=== PATIENT | female | born 1965 | race Caucasian/White ===

== ENCOUNTER 2019-12-31 15:02 | Emergency (ER) | payer OTHER, SELFPAY ==
[2019-12-31] VITALS (8 sets, daily range): BP systolic 155–232; BP diastolic 72–107; PULSE 61–72; RESP 16; TEMP 36.6; O2SAT 97–99; BMI 39.9
--- NOTE | 2019-12-31 16:55 | ED.GENADULT ---
HPI - General Adult General Chief complaint: Hypertension Stated complaint: NUMBNESS OF THE FACE MIDDLE BACK PAIN HIGH BLOOD P Time Seen by Provider: 12/31/19 15:43 Source: patient Mode of arrival: Ambulatory History of Present Illness HPI narrative: 54-year-old woman with a history of hypertension presents to her primary care physician's office for new patient visit and complains of a number of days of intrascapular pain some word-finding difficulties yesterday bilateral facial paresthesias and significantly elevated blood pressure. She currently is on 50 mg of metoprolol extended release and has been taking this. She also had a diagnosis of fibromyalgia for which she is currently on Suboxone. Her family history is significant for multiple family members with strokes and heart attacks in a father who of myocardial infarction at the age of 55. She sent to the emergency room for further evaluation for possible hypertensive crisis versus TIA or acute coronary syndrome. She notes headaches over the last couple of days, no chest pain or palpitations. She does not describe unilateral weakness or numbness. No fevers, coughs, chills, abdominal pain, dysuria, diarrhea, lower extremity edema, wheezing, cough, orthopnea or PND. Related Data Previous Rx's Medication Instructions Recorded hydrochlorothiazide 25 mg PO DAILY #30 tab 12/31/19 Allergies Allergy/AdvReac Type Severity Reaction Status Date / Time No Known Drug Allergies Allergy Verified 12/31/19 15:11 Review of Systems Review of Systems Narrative: Remainder of review of systems including constitutional, ENT, cardiovascular, respiratory, GI, , musculoskeletal, skin, neurologic and psychiatric systems reviewed and are unremarkable except as noted in HPI. Patient History Medical History Hypertension (Acute) Social History Smoking Status: Never smoker Smoking Status: Never smoker Substance Use Type: does not use Exam Narrative Exam Narrative: General: Healthy appearing, in no acute distress. Able to give a complete and coherent history. Well-nourished well-developed HEENT: Moist mucous membranes, normal sclera with reactive pupils, Neck: No JVD, supple Respiratory: Lungs are clear to auscultation, no wheezing no rales no rhonchi. Full and symmetrical air movement Cardiac: Regular rate and rhythm no murmurs no bruits Abdomen: Soft nontender good bowel tones, no flank pain Skin: Warm and dry, no rashes Neurologic: Grossly neurologically intact with no obvious asymmetries or abnormalities Extremities: No trauma, well perfused Psych: Cooperative, appropriate insight and affect Initial Vital Signs Initial Vital Signs: Vital Signs Temperature 97.8 F 12/31/19 15:05 Pulse Rate 72 12/31/19 15:05 Respiratory Rate 16 12/31/19 15:05 Blood Pressure 232/107 H 12/31/19 15:05 Pulse Oximetry 99 12/31/19 15:05 Course Orders Ordered: ED Orders 12/31/19 15:12 EKG-12 Lead Stat 12/31/19 17:05 Complete Blood Count AUTO DIFF Stat Comprehensive Metabolic Panel Stat Troponin I Stat 12/31/19 17:15 CT head/brain wo con Stat Discontinued Medications Diazepam (Valium) 5 mg IV NOW ONE Stop: 12/31/19 17:03 Last Admin: 12/31/19 17:21 Dose: Not Given Documented by: GERMAN Labetalol HCl (Trandate) 10 mg IV NOW ONE Stop: 12/31/19 17:17 Last Admin: 12/31/19 17:55 Dose: 10 mg Documented by: BTONER Vital Signs Vital signs: Vital Signs - 8 hr 12/31/19 15:05 12/31/19 17:33 12/31/19 17:48 Temperature 97.8 F Pulse Rate 72 63 61 Respiratory Rate 16 Blood Pressure 232/107 H 182/76 H Pulse Oximetry 99 97 99 12/31/19 17:55 12/31/19 18:00 12/31/19 18:30 Temperature Pulse Rate 67 63 61 Respiratory Rate Blood Pressure 182/76 H 155/72 H Pulse Oximetry 97 97 Medical Decision Making Lab Data Result diagrams: 12/31/19 17:05 12/31/19 17:05 Labs: Lab Results 12/31/19 12/31/19 Range/Units 17:05 17:05 WBC 9.7 (4.5-11.0) X10^3/uL RBC 4.86 (4.0-5.2) X10^6/uL Hgb 13.2 (12.0-16.0) g/dL Hct 39.9 (36-46) % MCV 82.1 (80-100) fL MCH 27.3 (26-34) PG MCHC 33.2 (30-36) % RDW 13.4 (11.6-14.8) % Plt Count 240 (150-400) X10^3/uL Neut % (Auto) 69.6 (50-75) % Lymph % (Auto) 22.9 L (25-40) % [place] % (Auto) 4.6 (3-14) % Eos % (Auto) 1.6 L (2-4) % Baso % (Auto) 1.3 (0-2) % Neut # (Auto) 6800 (6131-5122) /uL Lymph # (Auto) 2200 (6589-6468) /uL [place] # (Auto) 500 (0-900) /uL Eos # (Auto) 200 (0-450) /uL Baso # (Auto) 100 (0-100) /uL Sodium 139 (137-145) mmol/L Potassium 4.1 (3.4-5.1) mmol/L Chloride 104 (98-107) mmol/L Carbon Dioxide 32 (22-32) mmol/L BUN 13 (7-17) mg/dL Creatinine 0.67 (0.52-1.04) mg/dL Estimated GFR > 60.0 (>60) mL/min BUN/Creatinine Ratio 19.4 (6-22) Glucose 96 (70-100) mg/dL Calcium 9.5 (8.4-10.2) mg/dL Total Bilirubin 0.9 (0.2-1.3) mg/dL AST 43 H (14-36) IU/L ALT 40 H (<35) IU/L Alkaline Phosphatase 84 (38-126) U/L Troponin I < 0.012 (0.01-0.034) ng/mL Total Protein 7.8 (6.3-8.2) g/dL Albumin 4.1 (3.5-5.0) g/dL Globulin 3.7 (1.7-4.1) g/dL Albumin/Globulin Ratio 1.1 (1.0-2.8) Imaging Data CT scan - head: Radiologist's Impression: FINDINGS: Image quality: Excellent. CSF spaces: Basal cisterns are patent. No extra-axial fluid collections. Ventricles are normal in size and shape. Brain: No intracranial hemorrhage, mass, or mass effect. Trejo-white matter interface appears preserved. Skull and face: Calvarium and visualized facial bones are intact, without suspicious lesions. Sinuses: Visualized sinuses and mastoids are clear. IMPRESSION: 1. No acute intracranial abnormality. Dictated by: Mann Alvarez M.D. on 12/31/2019 at 17:31 ECG Data Interpretation: Sinus rhythm at a rate of 75 Normal intervals, normal axis No acute ischemic changes MDM Narrative Medical decision making narrative: 54-year-old woman presents with concerning symptoms surrounding her blood pressure. CT scan does not suggest any acute findings. EKG and lab work are all reassuring. Blood pressure has come down nicely and symptoms have essentially resolved after a single dose of 10 mg of IV labetalol. In discussion with the patient and with Dr. Peacock prior to admission to the ER will send her home with the addition of 25 mg of hydrochlorothiazide to her continued 50 mg of extended release metoprolol. Have asked her to purchase a blood pressure cuff and check her blood pressure approximately 2 hours after taking her morning medications and at 1 other time during the day so that she has numbers to review with Dr. Peacock and a follow-up visit within the next 3-5 days. At this point she is safe for home discharge and have encouraged her return to the emergency department should she have recurrent symptoms. Discharge Plan Departure Patient Disposition: Home Clinical Impression: Hypertension Qualifiers: Hypertension type: essential hypertension Qualified Code(s): I10 - Essential (primary) hypertension Instructions: DI for High Blood Pressure Activity Restrictions/Additional Instructions: Thank you for coming in today Your workup today was actually very reassuring. There is no evidence of a stroke or acute impending stroke. No heart attack or enlarged heart. Your blood work was also equally reassuring. I am going to ask that you follow-up with Dr. Peacock within the next 3-5 days. Please continue your metoprolol into this add 25 mg of hydrochlorothiazide, a blood pressure medication that is also a diuretic. Please take the 1st dose of this tomorrow. You will need to purchase a blood pressure cuff for home monitoring. No recommend that you check your blood pressure about 2 hours after you have taken your medication and sometime later in the day as well. Please keep track of these numbers to review them with Dr. Peacock so that you can make changes to your medication regimen based on data. If you find that you are having numbness, tingling, chest pain, dyspnea, palpitations or other concerning symptoms you feel a related to your blood pressure, please feel free to return to the emergency room for further evaluation. I wish you well Prescriptions: New hydrochlorothiazide 25 mg tablet 25 mg PO DAILY Qty: 30 RF: 0 Referrals: Nathanael Lopez MD [Primary Care Provider] - Radha Peacock MD [Physician] -
--- NOTE | 2019-12-31 17:15 | DI.CT.S_ITS ---
PROCEDURE: CT HEAD/BRAIN WO CON INDICATIONS: hypertensive crisis TECHNIQUE: Noncontrast 4.5 mm thick angled axial sections acquired from the foramen magnum to the vertex, with coronal and sagittal reformats. For radiation dose reduction, the following was used: automated exposure control, adjustment of mA and/or kV according to patient size. COMPARISON: [facility], CT, HEAD WITHOUT CONTRAST, 09/14/2008, 16:56. FINDINGS: Image quality: Excellent. CSF spaces: Basal cisterns are patent. No extra-axial fluid collections. Ventricles are normal in size and shape. Brain: No intracranial hemorrhage, mass, or mass effect. Trejo-white matter interface appears preserved. Skull and face: Calvarium and visualized facial bones are intact, without suspicious lesions. Sinuses: Visualized sinuses and mastoids are clear. IMPRESSION: 1. No acute intracranial abnormality. Dictated by: Mann Alvarez M.D. on 12/31/2019 at 17:31 Approved by: Mann Alvarez M.D. on 12/31/2019 at 17:33
[2019-12-31 17:23] LABS: Add Manual Diff / Slide Review NO; Basophils Absolute Auto 100 /uL (0-100); Basophils Percent Auto 1.3 % (0-2); Eosinophils Absolute Auto 200 /uL (0-450); Eosinophils Percent Auto 1.6 % (2-4); Hematocrit 39.9 % (36-46); Hemoglobin 13.2 g/dL (12.0-16.0); Lymphocytes Absolute Auto 2200 /uL (1100-4500); Lymphocytes Percent Auto 22.9 % (25-40); Mean Corpuscular HGB Conc 33.2 % (30-36); Mean Corpuscular Hemoglobin 27.3 PG (26-34); Mean Corpuscular Volume 82.1 fL (80-100); Monocytes Absolute Auto 500 /uL (0-900); Monocytes Percent Auto 4.6 % (3-14); Neutrophils Absolute Auto 6800 /uL (1500-7000); Neutrophils Percent Auto 69.6 % (50-75); Platelet Count 240 X10^3/uL (150-400); Red Blood Cell Count 4.86 X10^6/uL (4.0-5.2); Red Cell Distribution Width 13.4 % (11.6-14.8); White Blood Cell Count 9.7 X10^3/uL (4.5-11.0)
[2019-12-31 17:34] LABS: Alanine Aminotransferase 40 IU/L (<35); Albumin 4.1 g/dL (3.5-5.0); Albumin Globulin Ratio 1.1 (1.0-2.8); Alkaline Phosphatase 84 U/L (38-126); Aspartate Aminotransferase 43 IU/L (14-36); BUN Creatinine Ratio 19.4 (6-22); Bilirubin Total 0.9 mg/dL (0.2-1.3); Blood Urea Nitrogen 13 mg/dL (7-17); Calcium 9.5 mg/dL (8.4-10.2); Carbon Dioxide 32 mmol/L (22-32); Chloride 104 mmol/L (98-107); Estimated Glomerular Filt Rate > 60.0 mL/min (>60); Globulin 3.7 g/dL (1.7-4.1); Glucose 96 mg/dL (70-100); HEMOLYSIS < 15 (0-50); Potassium 4.1 mmol/L (3.4-5.1); Sodium 139 mmol/L (137-145); Total Protein 7.8 g/dL (6.3-8.2)
[2019-12-31 17:46] LABS: Troponin I < 0.012 ng/mL (0.01-0.034)
[2019-12-31] MEDS: LABETALOL 20 MG/4 ML SYRINGE 10 MG IV (17:55)
--- NOTE | 2019-12-31 19:25 | PC.NURSE ---
pt states she has a headache, states her bp is high but too high for her.
== END 2019-12-31 19:46 | disposition home or self-care (01) ==
PROVIDERS: Emergency Provider Emergency Medicine; Family Provider Family Medicine; PCP Family Medicine
DX: I10 Essential (primary) hypertension (principal); R20.0 Anesthesia of skin
CPT/HCPCS: 36415; 70450; 80053; 84484; 85025; 93005; 96374; 99284